=== PATIENT | female | born 1950 | race Caucasian/White ===

== ENCOUNTER 2020-10-09 16:42 | Emergency (ER) | payer MEDICARE, BC ==
[~2020-10-09] VITALS: Ht 167.6 cm; Wt 72.6 kg
[2020-10-09 16:50] VITALS: BP 145/93
[2020-10-09] MEDS ORDERED: FOLI0.8T PO (16:50)
[2020-10-09] MEDS ORDERED: RISP2TAB85 PO (16:50)
[2020-10-09] MEDS ORDERED: OMEP40CA13 PO (16:50)
--- NOTE | 2020-10-09 16:59 | NUR ---
PT SEEN AND EXAMINED BY .
[2020-10-09] MEDS ORDERED: TDAP [DIPH/PERTUSSIS/TET] 0.5 ML VIAL IM ONE ×2 (17:00→17:25)
[2020-10-09] MEDS ORDERED: LIDOCAINE 1% INJ 50 ML MDV IJ ONE (17:00)
--- NOTE | 2020-10-09 17:20 | NUR ---
MAYRA DONE BY .
[2020-10-09] MEDS ORDERED: LIDOCAINE 0.5%-EPI 1:200,000 50 ML VIAL ONE (17:23)
[2020-10-09] MEDS ORDERED: AMOX-430 PO (18:21)
[2020-10-09] MEDS ORDERED: IBUP-1953 PO (18:21)
--- NOTE | 2020-10-09 19:00 | NUR ---
Patient discharged to home in stable condition. Written and verbal after care instructions given. Patient verbalizes understanding of instruction.
== END 2020-10-09 19:01 | disposition home or self-care (01) ==
LOC: ER 16:43
DX: S01.01XA Laceration without foreign body of scalp, initial encounter (principal); Z79.899 Other long term (current) drug therapy; W54.0XXA Bitten by dog, initial encounter; Y93.89 Activity, other specified; Y92.89 Other specified places as the place of occurrence of the external cause; Y99.8 Other external cause status
CPT/HCPCS: 12002; 90471; 90715; 99283; A6403; J3490